=== PATIENT | female | born 2000 | race Caucasian/White ===

== ENCOUNTER 2021-09-05 12:08 | Inpatient (IN) | payer OTHER ==
[~2021-09-05] VITALS: Ht 165.1 cm; Wt 92.1 kg
[2021-09-06] MEDS ORDERED: PRENATAL + DHA1 EAC1 PO (08:06)
== END 2021-09-07 08:01 | disposition home or self-care (01) | DRG 831 ==
LOC: LDR 12:08
PROVIDERS: ADMIT Obstetrics & Gynecology; ATTEND Obstetrics & Gynecology
PROC: 4A1HXFZ Monitoring of Products of Conception, Cardiac Rhythm, External Approach (ICD-10-PCS; 2021-09-05)
PROC: BY4FZZZ Ultrasonography of Third Trimester, Single Fetus (ICD-10-PCS; 2021-09-05)
PROC: 30233N1 Transfusion of Nonautologous Red Blood Cells into Peripheral Vein, Percutaneous Approach (ICD-10-PCS; principal; 2021-09-06)
DX: O99.013 Anemia complicating pregnancy, third trimester (principal); D64.9 Anemia, unspecified; O98.513 Other viral diseases complicating pregnancy, third trimester; U07.1 COVID-19; O99.613 Diseases of the digestive system complicating pregnancy, third trimester; K52.89 Other specified noninfective gastroenteritis and colitis; O99.283 Endocrine, nutritional and metabolic diseases complicating pregnancy, third trimester; E86.0 Dehydration; Z3A.33 33 weeks gestation of pregnancy

== ENCOUNTER 2021-10-11 14:17 | Outpatient (CLI) | payer OTHER ==
[~2021-10-11 14:17] MED LIST: PRENATAL + DHA1 EAC1 PO
== END 2021-10-11 14:57 | disposition home or self-care (01) ==
LOC: NST 14:17
PROVIDERS: ATTEND Obstetrics & Gynecology
DX: Z34.83 Encounter for supervision of other normal pregnancy, third trimester (principal)

== ENCOUNTER 2021-10-18 05:27 | Inpatient (IN) | payer OTHER ==
[~2021-10-18] VITALS: Ht 165.1 cm; Wt 3.2 kg
[2021-10-18] MEDS ORDERED: IRON236 MG PO (06:38)
[2021-10-22] MEDS ORDERED: IBUPROFEN800 MG PO (10:23)
== END 2021-10-22 12:11 | disposition home or self-care (01) | DRG 788 ==
LOC: O/R 05:27 → LDR 05:27 → OB/GYN 05:27 → O/R 10-19 14:09 → OB/GYN 10-19 16:32
PROVIDERS: ADMIT Obstetrics & Gynecology; ATTEND Obstetrics & Gynecology
PROC: 10D00Z1 Extraction of Products of Conception, Low, Open Approach (ICD-10-PCS; principal; 2021-10-18)
PROC: 4A1HXCZ Monitoring of Products of Conception, Cardiac Rate, External Approach (ICD-10-PCS; 2021-10-18)
PROC: 3E033VJ Introduction of Other Hormone into Peripheral Vein, Percutaneous Approach (ICD-10-PCS; 2021-10-18)
DX: O61.0 Failed medical induction of labor (principal); Z3A.39 39 weeks gestation of pregnancy; Z37.0 Single live birth; Z20.822 Contact with and (suspected) exposure to COVID-19

== ENCOUNTER 2023-02-01 13:45 | Emergency (ER) | payer OTHER ==
[~2023-02-01] VITALS: Ht 165.1 cm; Wt 103.4 kg
[~2023-02-01 13:45] MED LIST changes: +IBUPROFEN800 MG PO; +IRON236 MG PO
== END 2023-02-01 18:28 | disposition home or self-care (01) ==
LOC: ER 13:45
DX: O21.0 Mild hyperemesis gravidarum (principal); Z3A.10 10 weeks gestation of pregnancy

== ENCOUNTER 2023-02-20 19:09 | Emergency (ER) | payer OTHER ==
[~2023-02-20] VITALS: Ht 165.1 cm; Wt 102.5 kg
[2023-02-20] MEDS ORDERED: TUSSIN100 MG/51 PO (22:31)
[2023-02-20] MEDS ORDERED: OSEL75CA PO (22:31)
[2023-02-20] MEDS ORDERED: ZOFRAN8 MG PO (22:31)
== END 2023-02-20 22:36 | disposition home or self-care (01) ==
LOC: ER 19:09
DX: J10.1 Influenza due to other identified influenza virus with other respiratory manifestations (principal); R11.10 Vomiting, unspecified; Z3A.13 13 weeks gestation of pregnancy; Z20.822 Contact with and (suspected) exposure to COVID-19

== ENCOUNTER 2023-03-21 22:44 | Emergency (ER) | payer OTHER ==
[~2023-03-21] VITALS: Ht 165.1 cm; Wt 106.6 kg
[~2023-03-21 22:44] MED LIST changes: +OSEL75CA PO; +TUSSIN100 MG/51 PO; +ZOFRAN8 MG PO
== END 2023-03-22 05:26 ==
LOC: ER 22:44
DX: O71.89 Other specified obstetric trauma (principal); Z3A.18 18 weeks gestation of pregnancy; W18.39XA Other fall on same level, initial encounter; Y93.89 Activity, other specified; Y92.018 Other place in single-family (private) house as the place of occurrence of the external cause; Y99.9 Unspecified external cause status

== ENCOUNTER 2023-04-21 13:23 | Emergency (ER) | payer OTHER ==
[~2023-04-21] VITALS: Ht 165.1 cm; Wt 98.0 kg
[2023-04-21] MEDS ORDERED: IRON240 MG PO (13:35)
== END 2023-04-21 19:09 | disposition home or self-care (01) ==
LOC: ER 13:23
DX: D64.9 Anemia, unspecified (principal)

== ENCOUNTER 2023-05-08 16:32 | Outpatient (CLI) | payer OTHER ==
[~2023-05-08 16:32] MED LIST changes: +IRON240 MG PO
== END 2023-05-09 16:42 | disposition home or self-care (01) ==
LOC: OBS/DEL 16:32
PROVIDERS: ATTEND Obstetrics & Gynecology
DX: O26.892 Other specified pregnancy related conditions, second trimester (principal); Z3A.24 24 weeks gestation of pregnancy; W18.39XA Other fall on same level, initial encounter; Y93.89 Activity, other specified; Y92.89 Other specified places as the place of occurrence of the external cause; Y99.8 Other external cause status

== ENCOUNTER 2023-06-28 21:00 | Outpatient (CLI) | payer OTHER ==
[2023-06-28 21:35] LABS: HEMATOCRIT 26.8 % (36.0-45.00); HEMOGLOBIN 9.1 g/dL (12.0-15.00); MEAN CELL VOLUME 81.2 fL (80.00-100.00); MEAN CORPUSCULAR HEMOGLOBIN 27.6 pg (27.00-32.0); PLATELET COUNT 238 K/uL (150-450); RED CELL DISTRIBUTION WIDTH 15.2 % (11.5-14.5)
[2023-06-28 21:37] LABS: PH,URINE 5.5 (5.0-8.0); URINE APPEARANCE Turbid; URINE BILIRRUBIN Negative (NEGATIVE); URINE BLOOD Trace; URINE COLOR Dark Yellow; URINE GLUCOSE Negative (NEGATIVE); URINE LEUKOCYTE Large; URINE NITRATE Positive; URINE PROTEIN 30 (NEGATIVE)
[2023-06-28 21:41] LABS: URINE EPITHELIAL CELLS 59.2 uL (0.0-38.8); URINE RBC 12.3 uL (0.0-20.8)
[2023-06-28 21:53] LABS: URINE BACTERIA > 9821.2 uL (0.0-1933)
== END 2023-06-29 15:48 | disposition home or self-care (01) ==
LOC: OBS/DEL 21:00
PROVIDERS: Obstetrics & Gynecology; ATTEND Obstetrics & Gynecology
DX: O23.33 Infections of other parts of urinary tract in pregnancy, third trimester (principal); N39.0 Urinary tract infection, site not specified; Z3A.31 31 weeks gestation of pregnancy

== ENCOUNTER 2023-08-16 08:00 | Inpatient (IN) | payer OTHER ==
[~2023-08-16] VITALS: Ht 152.4 cm; Wt 99.8 kg
[2023-08-16 09:06] LABS: URINE APPEARANCE Cloudy; URINE BILIRRUBIN Negative (NEGATIVE); URINE BLOOD Negative; URINE COLOR Yellow; URINE GLUCOSE Negative (NEGATIVE); URINE LEUKOCYTE Moderate; URINE NITRATE Negative; URINE PROTEIN Trace (NEGATIVE)
[2023-08-16 09:09] LABS: HEMATOCRIT 30.1 % (36.0-45.00); HEMOGLOBIN 9.6 g/dL (12.0-15.00); MEAN CELL VOLUME 76.9 fL (80.00-100.00); MEAN CORPUSCULAR HEMOGLOBIN 24.6 pg (27.00-32.0); PLATELET COUNT 265 K/uL (150-450); RED BLOOD COUNT 3.91 M/uL (4.00-6.00); RED CELL DISTRIBUTION WIDTH 17.4 % (11.5-14.5)
[2023-08-16 09:12] LABS: URINE EPITHELIAL CELLS 132.8 uL (0.0-38.8); URINE RBC 4.4 uL (0.0-20.8); URINE WBC 264.6 uL (0.0-23.2)
[2023-08-16 09:29] LABS: INR < 0.93; PARTIAL THROMBOPLASTIN TIME 21.7 SECONDS (22.0-34.0); PROTHROMBIN TIME 9.7 SECONDS (9.0-11.5)
[2023-08-16 09:32] LABS: CALCIUM 8.7 mg/dL (8.5-10.1); CREATININE SERUM 0.49 mg/dL (0.55-1.02); GFR 157.92; POTASSIUM 4.02 mEq/L (3.5-5.1)
[2023-08-16 09:44] LABS: URINE BACTERIA > 9821.5 uL (0.0-1933)
[2023-08-18 18:42] LABS: HEMATOCRIT 29.6 % (36.0-45.00); HEMOGLOBIN 9.6 g/dL (12.0-15.00); MEAN CELL VOLUME 76.5 fL (80.00-100.00); MEAN CORPUSCULAR HEMOGLOBIN 24.8 pg (27.00-32.0); MEAN CORPUSCULAR HGB CONC 32.5 g/dl (32.0-36.0); PLATELET COUNT 248 K/uL (150-450); RED BLOOD COUNT 3.87 M/uL (4.00-6.00); RED CELL DISTRIBUTION WIDTH 17.1 % (11.5-14.5)
[2023-08-20] MEDS ORDERED: IBUPROFEN800 MG PO (11:31)
== END 2023-08-20 15:27 | disposition home or self-care (01) | DRG 785 ==
LOC: OB/GYN 08-18 07:00 → O/R 08-18 07:45 → OB/GYN 08-18 07:53
PROVIDERS: ADMIT Obstetrics & Gynecology; ATTEND Obstetrics & Gynecology
PROC: 0UB70ZZ Excision of Bilateral Fallopian Tubes, Open Approach (ICD-10-PCS; 2023-08-18)
PROC: 4A1HXCZ Monitoring of Products of Conception, Cardiac Rate, External Approach (ICD-10-PCS; 2023-08-18)
PROC: 10D00Z1 Extraction of Products of Conception, Low, Open Approach (ICD-10-PCS; principal; 2023-08-18 07:00)
DX: O34.211 Maternal care for low transverse scar from previous cesarean delivery (principal); Z3A.39 39 weeks gestation of pregnancy; Z37.0 Single live birth; Z20.822 Contact with and (suspected) exposure to COVID-19; Z30.2 Encounter for sterilization